=== PATIENT | male | born 1950 | race Two or more races ===

== ENCOUNTER 2016-11-12 09:57 | Emergency (ER) | payer OTHER ==
--- NOTE | ~2016-11-12 | CR72 ---
[facility] A Service of [facility] RADIOLOGY TEXT RESULTS PATIENT: OPAL MIRANDA LOCATION: [facility] : 52 UNIT #: [id number] AGE: [address]: Rikki Rizvi MD SEX: M ORDER DR: [id number] [facility] [address] [place], [place] [address] [id number] MR#: [id number] Acc #: [id number] NAME: OPAL MIRANDA : 1950 SEX: M STUDY DATE/TIME: 11/12/2016 10:57 UNIT: [facility] ROOM: STUDY DESCRIPTION: CR Chest Single View Portable Attending Physician: Rikki Rizvi M.D. Ordering Physician: Rikki Rizvi M.D. Primary Care Physician: [facility] MEDICAL IMAGING REPORT This report is preliminary unless electronic signature is present EXAM Portable chest HISTORY Shortness of air since yesterday. COMPARISON 07/05/2016 FINDINGS Portable view of the chest demonstrates low lung volumes. No infiltrates or effusions. Mild perihilar prominence is nonspecific. Heart size within normal limits. Mediastinum unremarkable. No pneumothorax. Dictated by... Elfego Michael M.D. THIS IS AN ELECTRONICALLY VERIFIED REPORT Elfego Michael M.D. at 11/13/2016 12:30 PM MARIA/sunita TD: 11/12/2016 23:30 JOB #: [id number] MEDICAL IMAGING REPORT Page 1 of 1 COPY
--- NOTE | ~2016-11-12 | EKG ---
PATIENT: OPAL MIRANDA UNIT #: [id number] Ventricular Rate: 90 BPM Atrial Rate: 90 BPM P-R Interval: 152 ms QRS Duration: 86 ms Q-T Interval: 344 ms QTC Calculation(Bezet): 420 ms P [place]: 23 degrees Calculated R [place]: -14 degrees Calculated T [place]: 31 degrees Diagnosis Line: Normal sinus rhythm Diagnosis Line: Normal ECG Diagnosis Line: When compared with ECG of 02-NOV-2014 12:35, Diagnosis Line: No significant change was found Diagnosis Line: Confirmed by PRUDENCE CHANG MD ([id number]) on Diagnosis Line: 11/13/2016 8:21:44 AM INTERPRETING MD: CHARLENE LOPEZ
[~2016-11-12 09:57] MED LIST: ASPIRIN81 MG PO; GLIPIZIDE2.5 MG/BO1 PO; LIPITOR20 MG PO; METFORMIN HCL1000 M1 PO; NO MEDICATIONS; PROTONIX PO; TYLENOL325 M1 PO
[2016-11-12 11:03] LABS: BASOPHIL% 0.5 % (0-2.5); EOSINOPHIL# 0.4 X10e3 (0-0.7); EOSINOPHIL% 4.2 % (0.0-7.0); HEMATOCRIT 42.8 % (38.0-50.0); HEMOGLOBIN 14.1 gm/dL (13.0-16.0); LYMPHOCYTE% 21.7 % (17.0-45.0); MEAN CELL VOLUME 86.9 FL (83-96); MEAN CORPUSCULAR HEMOGLOBIN 28.6 PG (28-34); MEAN CORPUSCULAR HGB CONC 32.8 g/dL (30-36); MEAN PLATELET VOLUME 9.1 FL (6.5-11.5); MONOCYTE# 0.9 X10e3 (0-1.0); MONOCYTE% 9.4 % (3.0-12.0); NEUTROPHIL% 64.2 % (40-75); PLATELET COUNT 231 X10e3 (140-420); RED BLOOD COUNT 4.93 X10e (3.90-5.60); RED CELL DISTRIBUTION WIDTH 14.2 % (11.0-15.5); WHITE BLOOD COUNT 9.3 X10e3 (4.0-10.5)
[2016-11-12 11:05] LABS: DIFF IND NO
[2016-11-12 11:29] LABS: ALBUMIN SERUM 4.2 g/dL (3.5-5.0); BILIRUBIN, DIRECT 0.2 mg/dL (0.0-0.2); BILIRUBIN,INDIRECT 0.7 mg/dL (0.0-0.9); BILIRUBIN,TOTAL 0.9 mg/dL (0.2-2.0); CALCIUM SERUM 9.5 mg/dL (8.4-10.2); CREATININE SERUM 0.8 mg/dL (0.6-1.4); GLOM FILT RATE Estimated 93.8 mL/min (>60); PROTEIN TOTAL SERUM 7.7 g/dL (6.0-8.3)
[2016-11-12 12:26] LABS: POC - CKMB <1.0 ng/mL (0.0-7.9); POC - TROPONIN <0.05 ng/mL (<=0.05)
[2016-11-12 12:51] LABS: POC - CKMB <1.0 ng/mL (0.0-7.9); POC - TROPONIN <0.05 ng/mL (<=0.05)
== END 2016-11-12 13:13 | disposition home or self-care (01) ==
LOC: CED 09:57
PROVIDERS: Emergency Medicine
DX: J44.9 Chronic obstructive pulmonary disease, unspecified (principal); I10 Essential (primary) hypertension; E11.9 Type 2 diabetes mellitus without complications
CPT/HCPCS: 36415; 71010; 80048; 80076; 82553; 84484; 85025; 93005; 96374; 99284; J2930